=== PATIENT | female | born 1965 | race Hispanic/Latino ===

== ENCOUNTER 2017-03-15 08:22 | Outpatient (CLI) | payer MEDICARE ==
--- NOTE | 2017-03-15 10:44 | Fluoroscopy Report ---
MODIFIED BARIUM SWALLOW INDICATION: Oropharyngeal dysphagia. COMPARISON: None similar at this institution. FINDINGS: Fluoroscopy provided by radiologist for speech therapist to assess the swallowing mechanism. Food items of various consistencies given. No aspiration or penetration noted. Numerous radiopaque dental fillings. IMPRESSION: Successful modified barium swallow. Please refer to detailed report from speech pathologist. Thank you for the opportunity to participate in this patient's care.
== END 2017-03-15 08:23 | disposition home or self-care (01) ==
LOC: PT 08:22
PROVIDERS: ATTEND Internal Medicine Gastroenterology
DX: R13.12 Dysphagia, oropharyngeal phase (principal)
CPT/HCPCS: 74230; 92611; G8996; G8997; G8998